=== PATIENT | female | born 1955 | race Caucasian/White ===

== ENCOUNTER 2024-08-02 17:35 | Emergency (ER) | payer MEDICARE, OTHER, SELFPAY ==
--- NOTE | ~2024-08-02 | XR_ITS ---
EXAMINATION: XR finger 2nd LT min 2V DATE: 08/02/2024 18:10 INDICATION: Left hand second digit laceration. TECHNIQUE: 4 views of left hand second digit were obtained. COMPARISON: None. FINDINGS: Alignment is normal. No fracture. There is mild osteoarthritis of second metacarpophalangea l joint and proximal interphalangeal joint and moderate osteoarthritis of distal interphalangeal join t. There is a punctate calcification at ulnar aspect of second distal interphalangeal joint. IMPRESSION: 1. No fracture or radiopaque foreign body. 2. Polyarticular osteoarthritis. Reviewed, dictated and finalized at location A.
[2024-08-02 17:51] VITALS: BP 131/69; PULSE 72; RESP 16; TEMP 36.4; O2SAT 98
--- NOTE | 2024-08-02 18:04 | ED.WOUNDLAC ---
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 She is not up-to-date on her tetanus vaccine currently rates her pain 5/10. She has cleaned and applied Neosporin prior to arrival. Denies numbness or tingling. Related Data Home Medications Medication Instructions Recorded Confirmed amlodipine 2.5 mg tablet 2.5 mg PO DAILY 08/02/24 08/02/24 diclofenac sodium 75 mg 75 mg PO BID 08/02/24 08/02/24 tablet,delayed release duloxetine 20 mg capsule,delayed 40 mg PO DAILY 08/02/24 08/02/24 release metoprolol succinate 25 mg 25 mg PO DAILY 08/02/24 08/02/24 tablet,extended release 24 hr rosuvastatin 10 mg tablet 10 mg PO DAILY 08/02/24 08/02/24 Allergies Allergy/AdvReac Type Severity Reaction Status Date / Time Sulfa (Sulfonamide Allergy Hives Verified 08/02/24 17:53 Antibiotics) Review of Systems Review of Systems: CONSTITUTIONAL: Denies body aches, fever, chills, or sweats. EYES: Denies visual changes, redness, or discharge. ENT: Denies rhinorrhea, congestion, sore throat, or otalgia. CARDIOVASCULAR: Denies chest pain, palpitations, or edema. RESPIRATORY: Denies cough or dyspnea. GASTROINTESTINAL: Denies abdominal pain, nausea, vomiting, or diarrhea. GENITOURINARY: Denies dysuria or hematuria. SKIN: Denies rash, itching, or wounds. Laceration to left 2nd finger MUSCULOSKELETAL: Denies back pain, joint pain, or myalgia. NEUROLOGIC: Denies headache, numbness, tingling, or weakness. PSYCH: Denies depression or anxiety. [facility] Past Medical History Medical History (Updated 08/02/24 @ 18:44 by Marichuy Chau, [employer]Y TECH[employer]OLOGIST, ) High cholesterol Hypertension Comments At time of signature, I have reviewed and agree with nursing past medical, surgical, social and family history unless otherwise noted. Please see nursing chart for further information. There is no relevant family history pertinent to the presenting complaint Exam Narrative: GENERAL: Well-appearing, well-nourished, and in no acute distress. HEAD: Normocephalic, atraumatic. EYES: EOMI. No redness or drainage. Conjunctivae normal. ENT: Mucous membranes pink and moist. NECK: Normal AROM. CHEST: No respiratory distress. EXTREMITIES: Left 2nd finger: The pad of the finger has sustained an approx 1cm stellate laceration. Skin is in several pieces but still attached. No active bleeding. Full range of motion of the finger. Fingernail is unaffected. Distal sensation intact. Capillary refill normal. Bruising of the finger tip as well. SKIN: Warm, dry, no rash. Capillary refill normal. Normal skin turgor. NEURO: No focal deficits. Alert and oriented x3. Gait steady. PSYCH: Normal affect. No signs of depression or anxiety. Course Course Level of Care: Express Care Visit Vital Signs Vital signs: Vital Signs Oxygen Delivery Room Air 08/02/24 17:45 Temperature 97.6 F 08/02/24 17:51 Pulse Rate 72 08/02/24 17:51 Respiratory Rate 16 08/02/24 17:51 Blood Pressure 131/69 08/02/24 17:51 Pulse Oximetry 98 08/02/24 17:51 Oxygen Delivery Room Air 08/02/24 17:45 Reviewed Procedures Laceration Laceration 1: Date: 08/02/24 Time: 18:40 Site: hand (finger) Side (If applicable): left Size (cm): 1 Description: stellate Depth: simple, single layer Local Anesthetic: none ====== Skin Level ====== Skin layer closed with: dermabond and steri strips ====== Subcutaneous Layer ====== ====== Muscle Layer ====== ====== Tendon Layer ===
[2024-08-02] MEDS: TETANUS,DIPHTHERIA,AC PERTUSSIS ADULT (0.5 ML) BOOSTRIX IM (18:17)
--- NOTE | 2024-08-02 19:02 | PC.NURSE ---
MOTHER REPORTS SHE HAS A [address] TORO TOMORROW.
== END 2024-08-02 18:47 | disposition home or self-care (01) ==
PROVIDERS: Emergency Provider Nurse Practitioner
DX: S61.211A Laceration without foreign body of left index finger without damage to nail, initial encounter (principal); W29.3XXA Contact with powered garden and outdoor hand tools and machinery, initial encounter; Z23 Encounter for immunization; E78.00 Pure hypercholesterolemia, unspecified; I10 Essential (primary) hypertension
CPT/HCPCS: 12001; 73140; 90471; 90715; 99203; G0463